=== PATIENT | female | born 1985 | race Caucasian/White ===

== ENCOUNTER 2019-05-11 08:07 | Inpatient (IN) ==
[2019-05-11] MEDS ORDERED: LACTATED RINGERS 1,000 ML IV SCH ×2 (08:45→11:30)
[2019-05-11] MEDS ORDERED: LACTATED RINGERS 1,000 ML IV ONE (08:46)
--- NOTE | 2019-05-11 09:05 | Emergency Department Note ---
Skin/Abscess/FB HPI - General Chief complaint: Skin/Abscess/Foreign Body Stated complaint: Left Knee Cellulitis, swelling and redness Time Seen by Provider: 05/11/19 09:02 Source: patient Mode of arrival: ambulatory Limitations: no limitations - History of Present Illness HPI Narrative: Patient returns for preop evaluation. Was seen last night and was told return in the morning for possible surgery. Dr. Last as are any seen the patient and she is going to the OR. She denies chest pain or shortness of breath. She's had no respiratory symptoms. Denies nausea vomiting or diarrhea. She has redness to the left knee which is worsening despite antibiotic treatment. MD complaint: abscess/boil - Related Data Previous Rx's Medication Instructions Recorded Naproxen [Naprosyn] 375 mg PO BID #14 tablet 05/25/15 Sulfamethoxazole/Trimethoprim 1 tab PO BID #20 tab 05/10/19 [Bactrim Ds] Allergies Allergy/AdvReac Type Severity Reaction Status Date / Time No Known Drug Allergies Allergy Verified 05/11/19 08:12 Review of Systems Review of Systems: Previously documented and there have been no changes. Past Medical History - Past Medical History Attestation: Yes: The following information was validated with the patient. Source: old records reviewed Medical history: Reports: no medical history, non-contributory Surgical history ED: Reports: cholecystectomy, other (2 D&Cs) - Social History smoking status: Current every day smoker Alcohol use: Reports: Rarely Drug use: Reports: none Physical Exam Limitations: no limitations General appearance: alert, in distress Head: atraumatic, normocephalic Eye: Present: normal appearance, PERRL, EOMI ENT: normal exam, mucous membranes moist, TM's normal bilaterally, normal external ear exam, other (moderate degree of hirsutism) Neck: Present: normal inspection, full ROM, trachea midline Chest: Present: normal inspection, symmetric chest wall rise Respiratory: Present: normal lung sounds bilaterally. Absent: respiratory distress, rales/crackles, wheezes Cardiovascular: Present: regular rate, normal rhythm, normal heart sounds Abdominal: Present: soft, normal bowel sounds. Absent: distention, tenderness, guarding Extremities: Present: pretibial edema, other (decreased range of motion of the left knee, consistent with cellulitis and prepatellar bursitis.). Absent: calf tenderness Back: Absent: CVA tenderness (R), CVA tenderness (L) Neurological: Present: alert, oriented X3, CN II-XII intact Psychiatric: Present: normal affect Skin: Present: warm, dry, erythema, other (cellulitis of the left knee area spreading all the way up to the mid thigh and mcfp down the leg.) Course - Reevaluation(s) Reevaluation #1: 12-lead EKG showing sinus tachycardia, no acute ST segment changes. Vital Signs Temperature 98.2 F 05/11/19 08:08 Pulse Rate 126 H 05/11/19 08:08 Respiratory Rate 18 05/11/19 08:08 Blood Pressure 120/56 05/11/19 08:08 Pulse Oximetry (%) 98 05/11/19 08:08 Temperature 98.2 F 05/11/19 08:08 Pulse Rate 123 H 05/11/19 09:00 Respiratory Rate 25 H 05/11/19 09:00 Blood Pressure 111/90 05/11/19 08:48 Pulse Oximetry (%) 100 05/11/19 09:00 Skin/Abscess/Foreign Body - [facility] Narrative Medical decision making narrative: Final impression is prepatellar bursitis. Patient going to the operating room at this time. IV fluids started. She was given antibiotics 2:00 in the morning. Disposition Pt seen by RELATIONSHIP MANAGER/PA only: No Clinical Impression: Cellulitis, Prepatellar bursitis of left knee Disposition: Xfer As Inpt ([facility]) Condition: Good Referrals: No,PCP [Primary Care Provider] -
[2019-05-11] MEDS: LACTATED RINGERS 1,000 ML IV ONE ×2 (09:20→10:00)
[2019-05-11 10:04] LABS: Basophils # (Auto) 0 K/mcL (0.0-0.3); Basophils % (Auto) 0.1 % (0.0-2.0); Eosinophils # (Auto) 0.3 K/mcL (0.0-0.7); Eosinophils % (Auto) 1.8 % (0.0-7.0); Granulocytes % (Auto) 78.3 % (38.0-78.0); Hematocrit 37.4 % (36.0-48.0); Hemoglobin 12.3 g/dL (12.0-15.0); Lymphocytes # (Auto) 1.8 K/mcL (1.5-4.8); Lymphocytes % (Auto) 11.1 % (15.5-49.0); Mean Cell Volume 88.1 fL (80.0-100.0); Mean Corpuscular HGB Conc 32.8 g/dL (31.0-36.0); Monocytes # (Auto) 1.4 K/mcL (0.1-0.9); Monocytes % (Auto) 8.7 % (1.0-12.0); Platelet Count 300 K/mcL (140-440); RBC 4.24 M/mcL (4.00-5.20); Red Cell Distribution Width 12.1 % (11.5-14.5); WBC 16.6 K/mcL (4.5-11.0)
[2019-05-11 10:25] LABS: ALT/SGPT 365 U/l (0-40); AST/SGOT 222 U/l (0-37); Albumin 3.4 gm/dL (3.2-5.2); Albumin/Globulin Ratio 1.2 (1.0-2.3); Alkaline Phosphatase 160 U/L (39-117); Bilirubin,Direct < 0.2 mg/dL (0.0-0.3); Bilirubin,Total 0.3 mg/dL (0.0-1.0); Blood Urea Nitrogen 9 mg/dl (6-20); Calcium 8.3 mg/dl (8.6-10.4); Carbon Dioxide 20 mmol/L (22-30); Chloride 102 mmol/L (96-108); Globulin 2.9 gm/dL (2.2-3.7); Glomerular Filtration Rate 118; Glucose 93 mg/dL (70-105); Lactate Dehydrogenase 202 U/L (94-250); Triglycerides 79 mg/dl (<150); Uric Acid 2.4 mg/dL (2.5-8.0)
[2019-05-11] MEDS ORDERED: ONDANSETRON 4 MG/2 ML VIAL IV ONE (11:05)
[2019-05-11] MEDS ORDERED: fentaNYL 100 MCG/2 ML VIAL IV ONE (11:05)
[2019-05-11] MEDS ORDERED: DEXAMETHASONE 10 MG/ML VIAL IV ONE (11:05)
[2019-05-11] MEDS ORDERED: PROPOFOL 200 MG/20 ML VIAL IV ONE (11:05)
[2019-05-11] MEDS ORDERED: GLYCOPYRROLATE 0.2 MG/ML VIAL IV ONE (11:05)
[2019-05-11] MEDS ORDERED: LIDOCAINE HCL/PF 100 MG/5 ML SYRINGE IV ONE (11:05)
[2019-05-11] MEDS ORDERED: KETAMINE 100 MG/ML ML IV ONE (11:05)
[2019-05-11] MEDS ORDERED: HYDROmorphone 2 MG/ML VIAL IV ONE (11:05)
[2019-05-11] MEDS ORDERED: MIDAZOLAM 5 MG/5 ML VIAL IV ONE (11:05)
[2019-05-11] MEDS ORDERED: HYDROmorphone 2 MG/ML VIAL IV PRN ×2 (11:23→11:57)
[2019-05-11] MEDS ORDERED: NALOXONE HCL 0.4 MG/ML VIAL IV PRN (11:23)
[2019-05-11] MEDS ORDERED: ONDANSETRON 4 MG/2 ML VIAL IV PRN ×2 (11:23→11:57)
[2019-05-11] MEDS ORDERED: KETOROLAC 30 MG/ML VIAL IV PRN (11:23)
[2019-05-11] MEDS ORDERED: fentaNYL 100 MCG/2 ML VIAL IV PRN (11:23)
[2019-05-11] MEDS ORDERED: LACTATED RINGERS 250 ML IV PRN (11:23)
[2019-05-11] MEDS ORDERED: IPRATROPIUM/ALBUTEROL 3 ML AMPUL.NEB NEB PRN (11:23)
[2019-05-11] MEDS ORDERED: METHOCARBAMOL 1,000 MG/10 ML VIAL IV PRN (11:23)
[2019-05-11] MEDS ORDERED: ACETAMINOPHEN 1,000 MG/100 ML BOTTLE IV ONE (11:23)
[2019-05-11] MEDS ORDERED: BENZOCAINE/MENTHOL 1 LOZENGE PO PRN (11:23)
[2019-05-11] MEDS ORDERED: FLUMAZENIL 0.1 MG/ML ML IV PRN (11:23)
[2019-05-11] MEDS ORDERED: oxyCODONE HCL 5 MG TABLET PO PRN (11:57)
[2019-05-11] MEDS ORDERED: ALBUTEROL SULFATE 2.5 MG/3 ML NEBULIZER NEB PRN (11:57)
[2019-05-11] MEDS ORDERED: VANCOMYCIN PER PHARMACY IV SCH (11:57)
[2019-05-11] MEDS ORDERED: HYDROCODONE/APAP 7.5/325MG TABLET PO PRN (11:58)
--- NOTE | 2019-05-11 13:36 | Internal Med History&Physical ---
Medical - H&P: [facility] Patient information: Note initiated : 05/11/19 at 1:33 pm Service Date, if different from initiated Date: [] Patient: Sherry Bonilla a 34 y/o F admitted on 05/11/19 for Left Knee Cellulitis, swelling and redness. Chief Complaint: [] History of present illness: Ms. Bonilla is a 34 year old F with no significant past medical history presents to the hospital today for evaluation of left knee pain. Patient was drowsy and was evaluated in her room postoperatively. Patient [place], she either cut or had a spider bite on the knee. Since then that has been increased erythema induration pain that has been progressively increasing. She was seen in the emergency ro om yesterday antibiotics were given and she was scheduled for surgery today. Dr. Last evaluated the patient this morning and scheduled the patient for surgery. Given the fact that patient had elevated white blood cell count was tachycardic possible sepsis medicine was advised to admit the patient for antibiotic management and management of sepsis postoperatively. On my evaluation patient is drowsy however alert oriented x3 she is able to answer some questions of family was at bedside. The patient notes that she has not taken any antibiotics besides what was provided to her yesterday. She has pain at the site of surgery, she had some fever and chills, but otherwise no other complaints. ROS unobtainable: due to mental status (Patient is quite drowsy but denies chest pain shortness of breath headache dizziness abdominal pain or any bowel bladder complaints) Medical - H&P: PMH Medical history: Denies any past medical history, Denies any chronic home medications Surgical history: Patient has a history of gallbladder surgery Family history: reviewed and not pertinent Pertinent family history: Grandfather had diabetes Social history: Active smoker Social use of marijuana Occasional alcohol report Denies any other recreational drug Medical - H&P: Meds Home Medications Medication Instructions Recorded Confirmed Type Naproxen [Naprosyn] 375 mg PO BID #14 tablet 05/25/15 Rx Sulfamethoxazole/Trimethoprim 1 tab PO BID #20 tab 05/10/19 Rx [Bactrim Ds] Allergies Allergy/AdvReac Type Severity Reaction Status Date / Time No Known Drug Allergies Allergy Verified 05/11/19 08:12 Medical - H&P: Exam - Constitutional Vitals: Temp Pulse Resp BP Pulse Ox 98.6 F 110 H 16 96/62 95 05/11/19 13:00 05/11/19 12:56 05/11/19 13:00 05/11/19 13:00 05/11/19 13:00 Exam: GENERAL: The patient is a well-developed, well-nourished in no apparent distress. Is drowsy and oriented x3. VITAL SIGNS: Reviewed and as noted elsewhere. HEENT: Head is normocephalic and atraumatic. Extraocular muscles are intact. Pupils are equal, round, and reactive to light. Nares appeared normal. Mouth appears any without lesions. Mucous membranes are moist. NECK: Normal to inspection, Supple, No lymphadenopathy or thyromegaly. LUNGS: Air entry equal on both sides, no wheezing, crackles or rhonchi noted. No accessory muscles of respiration HEART: Regular rate and rhythm normal, S1 and S2 heard, no Gallop, S3 or Rub Noted, No Gross murmur heard. ABDOMEN: Soft, nontender, and nondistended. Positive bowel sounds. No hepatosplenomegaly was noted. EXTREMITIES: No cyanosis, clubbing, rash, lesions or edema. Left knee in dressing, drain in place NEUROLOGIC: Cranial nerves II through XII are grossly intact. Motor and Sensory System Grossly Intact PSYCHIATRIC: Normal affect, Normal Mood. Appropriate Behavior. SKIN: No ulceration or wounds noted, No jaundice, No rash noted. Medical - H&P: Reslt - Labs CBC & Chem 7: 05/11/19 09:26 05/11/19 09:26 Labs: Short CBC 05/11/19 Range/Units 09:26 WBC 16.6 H (4.5-11.0) K/mcL Hgb 12.3 (12.0-15.0) g/dL Hct 37.4 (36.0-48.0) % Plt Count 300 (140-440) K/mcL BMP 05/11/19 09:26 Sodium 133 Potassium 3.9 Chloride 102 Carbon Dioxide 20 L BUN 9 Creatinine 0.6 Glucose 93 Calcium 8.3 L Liver Function 05/11/19 Range/Units 09:26 Total Bilirubin 0.3 (0.0-1.0) mg/dL Direct Bilirubin < 0.2 (0.0-0.3) mg/dL GGT 102 H (5-36) U/L AST 222 H (0-37) U/l ALT 365 H (0-40) U/l Alkaline Phosphatase 160 H (39-117) U/L Albumin 3.4 (3.2-5.2) gm/dL Medical - H&P: A/P - Narrative A/P Narrative: A/P Sepsis Left knee bursitis, Cellulitis Tobacco abuse Marijua use Abnormal lft Plan Admit to med surg ANGIE brunson for now check a1c, hiv get liver usg, check hepatitis panel, apap level, DVT hep sq Regular diet
[2019-05-11] MEDS: KETOROLAC 30 MG/ML VIAL IV SCH ×3 (13:37→23:14)
[2019-05-11] MEDS ORDERED: VANCOMYCIN 1,500 MG in 0.9 % SODIUM CHLORIDE 500 ML IV ONE (14:00)
[2019-05-11] MEDS: 0.9 % SODIUM CHLORIDE 10 ML SYRINGE IV SCH ×3 (14:30→20:42)
[2019-05-11] MEDS: oxyCODONE HCL 5 MG TABLET PO PRN ×2 (14:58→23:14)
[2019-05-11] MEDS: cefTRIAXone 2 GM in DEXTROSE 5% IN WATER 50 ML IV SCH (15:00)
[2019-05-11] MEDS: ACETAMINOPHEN 500 MG TABLET PO SCH ×2 (15:00→20:34)
[2019-05-11 15:43] LABS: Hepatitis B Surface Antibody POSITIVE (NEGATIVE); Hepatitis C Virus Antibody NON REACTIVE (NEGATIVE)
[2019-05-11 15:44] LABS: Hepatitis B Surface Antigen NEGATIVE (NEGATIVE)
[2019-05-11] MEDS ORDERED: ALPRAZolam 0.5 MG TABLET PO PRN (18:56)
[2019-05-11] MEDS ORDERED: ALPRAZolam 0.5 MG TABLET ONE (19:17)
[2019-05-11] MEDS ORDERED: NICOTINE 21 MG PATCH ONE (19:18)
[2019-05-11] MEDS: HEPARIN 5,000 UNIT/ML VIAL SQ SCH (20:35)
[2019-05-11] MEDS: NICOTINE 21 MG PATCH TOPICAL SCH (20:41)
[2019-05-11] MEDS ORDERED: VANCOMYCIN 500 MG in 0.9 % SODIUM CHLORIDE 100 ML IV ONE (21:00)
[2019-05-11] MEDS: 0.9 % SODIUM CHLORIDE 1,000 ML IV SCH (22:18)
[2019-05-12 05:58] LABS: Hemoglobin A1C 5.2 % HGB (4.0-6.0)
[2019-05-12] MEDS: KETOROLAC 30 MG/ML VIAL IV SCH ×3 (05:58→17:58)
[2019-05-12] MEDS: 0.9 % SODIUM CHLORIDE 1,000 ML IV SCH (05:58)
[2019-05-12] MEDS: 0.9 % SODIUM CHLORIDE 10 ML SYRINGE IV SCH ×5 (06:03→20:46)
[2019-05-12] MEDS: ACETAMINOPHEN 500 MG TABLET PO SCH ×3 (08:04→20:45)
[2019-05-12] MEDS: cefTRIAXone 2 GM in DEXTROSE 5% IN WATER 50 ML IV SCH (08:04)
[2019-05-12 09:36] LABS: Basophils # (Auto) 0.1 K/mcL (0.0-0.3); Basophils % (Auto) 0.4 % (0.0-2.0); Eosinophils # (Auto) 0 K/mcL (0.0-0.7); Eosinophils % (Auto) 0.3 % (0.0-7.0); Granulocytes % (Auto) 78.3 % (38.0-78.0); Hematocrit 32.3 % (36.0-48.0); Hemoglobin 10.6 g/dL (12.0-15.0); Lymphocytes # (Auto) 1.9 K/mcL (1.5-4.8); Lymphocytes % (Auto) 14.3 % (15.5-49.0); Mean Platelet Volume 7.7 fL (7.4-10.4); Monocytes # (Auto) 0.9 K/mcL (0.1-0.9); Monocytes % (Auto) 6.7 % (1.0-12.0); Platelet Count 312 K/mcL (140-440); RBC 3.59 M/mcL (4.00-5.20); Red Cell Distribution Width 12.4 % (11.5-14.5); WBC 13.5 K/mcL (4.5-11.0)
--- NOTE | 2019-05-12 09:56 | Orthopedic Progress Note ---
Subjective Patient information: Note initiated : 05/12/19 at 9:51 am Service Date, if different from initiated Date: [] Patient: Sherry Bonilla 34 y/o F admitted on 05/11/19 for Left Knee Cellulitis, swelling and redness. Chief Complaint: [] Interval history: Patient is POD 1 and reports that she is feeling well but her knee is mildly painful. She has been resting in bed. She denies any fever, chills, nausea, vom iting, or any other acute symptoms. Objective Vital signs: Vital Signs Temp Pulse Pulse Resp BP BP Pulse Ox 05/12/19 06:44 99 F 79 16 83/56 97 05/12/19 03:45 98.2 F 97 H 16 100/59 98 05/11/19 23:40 97.9 F 84 16 97/62 94 05/11/19 19:00 97.7 F 89 16 99/62 96 05/11/19 17:15 102 H 94/60 05/11/19 16:33 96 H 89/62 05/11/19 16:03 93 H 86/56 93 05/11/19 16:00 86/56 05/11/19 15:03 81 104/66 99 05/11/19 14:33 88 95/61 99 05/11/19 13:19 116 H 97/60 91 05/11/19 13:00 98.6 F 16 96/62 95 05/11/19 12:56 97.8 F 110 H 13 116/46 99 05/11/19 12:40 101 H 10 L 113/54 100 05/11/19 12:35 102 H 11 L 115/54 100 05/11/19 12:30 102 H 15 109/51 100 05/11/19 12:25 103 H 13 102/46 100 05/11/19 12:20 103 H 12 102/46 100 05/11/19 12:15 106 H 9 L 104/42 98 05/11/19 12:10 99.3 F H 105 H 10 L 109/40 97 05/11/19 09:56 98.2 F 123 H 19 111/90 100 Intake and Output 05/11/19 05/12/19 05/12/19 21:59 05:59 13:59 Intake Total 1550 1558 Output Total 1999 315 700 Balance -450 943 -700 Intake: IV 1150 958 Sodium Chloride 0.9% 1,000 ml @ 958 125 mls/hr IV .Q8H [facility] Rx#: [id number] Lactated Ringers 1,000 ml @ 20 1000 mls/hr IV .Q24H RAD[facility] Rx#: [id number] Rocephin 2 gm In Dextrose 5% in 50 Water 50 ml @ 100 mls/hr IV Q24H [facility] Rx#:[id number] Oral 400 600 Output: Drainage 15 Left Knee ESPERANZA Drain 15 Void Amount 1999 600 700 Other: Meal Dinner Percent of Meal Consumed 90% Feeding Ability Independent Urine Appearance Clear Clear Clear Urine Color Bright Yellow Bright Yellow Light Camilla Urine Odor Normal Weight 164 lb Intake & Output: Intake & Output 05/11/19 05/12/19 05/12/19 21:59 05:59 13:59 Intake Total 1550 1558 Output Total 1999 615 700 Balance -450 943 -700 Weight 164 lb Intake: IV 1150 958 Sodium Chloride 0.9% 1,000 ml @ 958 125 mls/hr IV .Q8H [facility] Rx#: [id number] Lactated Ringers 1,000 ml @ 20 1000 mls/hr IV .Q24H [facility] Rx#: [id number] Rocephin 2 gm In Dextrose 5% in 50 Water 50 ml @ 100 mls/hr IV Q24H [facility] Rx#:[id number] Oral 400 600 Output: Drainage 15 Left Knee ESPERANZA Drain 15 Void Amount 1999 600 700 Other: Meal Dinner Percent of Meal Consumed 90% Feeding Ability Independent Urine Appearance Clear Clear Clear Urine Color Bright Yellow Bright Yellow Light Camilla Urine Odor Normal Incision clean and dry: Yes Dressing: Yes clean Weight bearing status: as tolerated Neurological exam IM: Yes neurovascular intact Extremities exam IM: Yes Foot pink and warm - Labs CBC & BMP: 05/12/19 08:54 05/11/19 09:26 Labs: 05/12/19 05/11/19 08:54 09:26 Hgb 10.6 L 12.3 Hct 32.3 L 37.4 Assessment and Plan - Narrative A/P Narrative: POD 1 I&D left knee infectious prepatellar bursitis 1. Drain removed today at visit 2. Dressings to remain in place until POD 3 and then can be redressed with gauze 3. May be WBAT and knee ROM as tolerated 4. IV antibiotics and discharge per hospitalists. 5. Follow up with [facility] around 2 week postop rubens
[2019-05-12 09:57] LABS: ALT/SGPT 177 U/l (0-40); AST/SGOT 46 U/l (0-37); Albumin 2.7 gm/dL (3.2-5.2); Alkaline Phosphatase 110 U/L (39-117); Bilirubin,Direct < 0.2 mg/dL (0.0-0.3); Bilirubin,Total 0.2 mg/dL (0.0-1.0); Blood Urea Nitrogen 9 mg/dl (6-20); Calcium 8.1 mg/dl (8.6-10.4); Carbon Dioxide 23 mmol/L (22-30); Chloride 108 mmol/L (96-108); Globulin 2.6 gm/dL (2.2-3.7); Glomerular Filtration Rate 118; Glucose 119 mg/dL (70-105); Lactate Dehydrogenase 190 U/L (94-250); Phosphorous 2.7 mg/dL (2.7-4.5); Triglycerides 84 mg/dl (<150); Uric Acid 2.3 mg/dL (2.5-8.0)
[2019-05-12] MEDS: HEPARIN 5,000 UNIT/ML VIAL SQ SCH ×2 (10:17→20:45)
[2019-05-12] MEDS: VANCOMYCIN 1,500 MG in 0.9 % SODIUM CHLORIDE 500 ML IV SCH ×2 (10:17→20:46)
--- NOTE | 2019-05-12 11:30 | Internal Med Progress Note ---
Medical - PN: Subj Patient information: Note initiated : 05/12/19 at 11:26 am Service Date, if different from initiated Date: [] Patient: Sherry Bonilla a 34 y/o F admitted on 05/11/19 for Left Knee Cellulitis, swelling and redness. Chief Complaint: [] Interval history: Ms. Bonilla is a 34 year old F with no significant past medical history presents to the hospital today for evaluation of left knee pain. Patient was drowsy and was evaluated in her room postoperatively. Patient [place] 5 [place], she either cut or had a spider bite on the knee. Since then that has been increased erythema induration pain that has been progressively increasing. She was seen in the emergency room yesterday antibiotics were given and she was scheduled for surgery today. Dr. Last evaluated the patient this morning and scheduled the patient for surgery. Given the fact that patient had elevated white blood cell count was tachycardic possible sepsis medicine was advised to admit the patient for a ntibiotic management and management of sepsis postoperatively. On my evaluation patient is drowsy however alert oriented x3 she is able to answer some questions of family was at bedside. The patient notes that she has not taken any antibiotics besides what was provided to her yesterday. She has pain at the site of surgery, she had some fever and chills, but otherwise no other complaints. 05/12 Patient seen and examined, no acute overnight events. Wound is still covered with dressing, however there is no extension of cellulitis into the thigh region. I reviewed the case with Ortho to have remove the drain. I noted that the patient's cellulitis is much better than yesterday. Patient has no new complaints or concerns Wound cultures growing gram-positive as well as gram-negative bacteria Pertinent ROS: Denies headache, dizziness Denies chest pain, palpitations Denies cough or shortness of breath Denies abdominal pain, nausea or vomiting. - Constitutional Vitals: Vital Signs Temp Pulse Resp BP Pulse Ox 99 F 79 16 83/56 97 05/12/19 06:44 05/12/19 06:44 05/12/19 06:44 05/12/19 06:44 05/12/19 06:44 Period Temp Pulse Resp BP Sys/Mcmillan Pulse Ox Last 24 Hr 97.7 F-99.3 F 79-116 9-16 83-116/40-66 91-100 Intake and Output 05/11/19 05/12/19 05/12/19 21:59 05:59 13:59 Intake Total 1550 1558 50 Output Total 1999 615 700 Balance -450 943 -650 Weight 164 lb Intake & Output: Intake & Output 05/11/19 05/12/19 05/12/19 21:59 05:59 13:59 Intake Total 1550 1558 50 Output Total 1999 615 700 Balance -450 943 -650 Weight 164 lb Intake: IV 1150 958 50 Sodium Chloride 0.9% 1,000 ml @ 958 125 mls/hr IV .Q8H [facility] Rx#: [id number] Lactated Ringers 1,000 ml @ 20 1000 mls/hr IV .Q24H [facility] Rx#: [id number] Rocephin 2 gm In Dextrose 5% in 50 50 Water 50 ml @ 100 mls/hr IV Q24H [facility] Rx#:[id number] Oral 400 600 Output: Drainage 15 Left Knee ESPERANZA Drain 15 Void Amount 1999 600 700 Other: Meal Dinner Percent of Meal Consumed 90% Feeding Ability Independent Urine Appearance Clear Clear Clear Urine Color Bright Yellow Bright Yellow Light Camilla Urine Odor Normal Exam: Constitutional; Afebrile, cooperative, alert, not in distress. Eyes- No icterus, , No periorbital swelling Ears- Ext ear normal, hearing normal to conversation. Neck- Midline trachea, supple Respiratory system: Air Entry equal on both sides, No crackles or wheezing, no rhonchi. CVS- Rate rhythm regular, S1,S2 heard, no gallop, no rub. Abdomen- Soft nontender abdomen, no organomegaly, no tenderness, no guarding or rigidity, TANGLED YARN SPOOL STRAIGHTENER- AOOx3, moving all extremities, no gross focal deficit noted. Medical - PN: Obj Da - Labs CBC & Chem 7: 05/12/19 08:54 05/12/19 08:54 Labs: Abnormal Lab Results 05/12/19 05/12/19 05/11/19 08:54 08:54 14:36 WBC 13.5 H RBC 3.59 L Hgb 10.6 L Hct 32.3 L Gran % 78.3 H Lymph % (Auto) 14.3 L Gran # 10.6 H Chester # (Auto) Carbon Dioxide Glucose 119 H Uric Acid 2.3 L Calcium 8.1 L GGT 64 H AST 46 H ALT 177 H Alkaline Phosphatase Total Protein 5.3 L Albumin 2.7 L Hep Bs Antibody Positive A 05/11/19 05/11/19 09:26 09:26 WBC 16.6 H RBC Hgb Hct Gran % 78.3 H Lymph % (Auto) 11.1 L Gran # 13.0 H Chester # (Auto) 1.4 H Carbon Dioxide 20 L Glucose Uric Acid 2.4 L Calcium 8.3 L GGT 102 H AST 222 H ALT 365 H Alkaline Phosphatase 160 H Total Protein Albumin Hep Bs Antibody Meds: Medications Acetaminophen (Tylenol) 1,000 mg PO TID [facility] Last Admin: 05/12/19 08:04 Dose: 1,000 mg Documented by: Albuterol Sulfate (Ventolin) 2.5 mg NEB Q2HP PRN PRN Reason: Shortness Of Breath Alprazolam (Xanax) 0.5 mg PO TIDP PRN PRN Reason: Anxiety Heparin Sodium (Porcine) (Heparin) 5,000 unit SQ Q12 [facility] Last Admin: 05/12/19 10:17 Dose: 5,000 unit Documented by: Heparin Sodium (Porcine) (Heparin Flush) 2 ml IV Q12 [facility] Last Admin: 05/11/19 20:34 Dose: 2 ml Documented by: Hydromorphone HCl (Dilaudid) 0.5 mg IV Q2HP PRN PRN Reason: pain\ Last Admin: 05/11/19 13:27 Dose: 0.5 mg Documented by: Ceftriaxone Sodium 2 gm/ (Dextrose) 50 mls @ 100 mls/hr IV Q24H [facility] Last Infusion: 05/12/19 08:35 Dose: Infused Documented by: Vancomycin HCl 1,500 mg/ (Sodium Chloride) 500 mls @ 333.3 mls/hr IV Q12H [facility] Last Admin: 05/12/19 10:17 Dose: 333.3 mls/hr Documented by: Sodium Chloride (Sodium Chloride 0.9%) 1,000 mls @ 125 mls/hr IV .Q8H [facility] Stop: 05/12/19 13:44 Last Admin: 05/12/19 05:58 Dose: 125 mls/hr Documented by: Ketorolac Tromethamine (Toradol) 15 mg IV Q6 [facility] Stop: 05/12/19 18:01 Last Admin: 05/12/19 05:58 Dose: 15 mg Documented by: Nicotine (Nicoderm) 21 mg TOPICAL DAILY@1000 [facility] Last Admin: 05/11/19 20:41 Dose: Not Given Documented by: Ondansetron HCl (Zofran) 4 mg IV Q6HP PRN PRN Reason: Nausea And Vomiting Oxycodone HCl (Roxicodone) 5 - 10 mg PO Q4HP PRN PRN Reason: pain not responding/apap Last Admin: 05/11/19 23:14 Dose: 5 mg Documented by: Sodium Chloride (Saline Flush) 10 ml IV Q8 [facility] Last Admin: 05/12/19 06:03 Dose: Not Given Documented by: Sodium Chloride (Saline Flush) 10 ml IV Q12 [facility] Last Admin: 05/12/19 10:17 Dose: 10 ml Documented by: Vancomycin HCl (Vancomycin Per Pharmacy) 1 order IV UD [facility]; Protocol Medical - PN: A/P - Time Spent With Patient Total time spent is greater than 50% in coordination of care (as documented) at patient's floor/unit and/or counseling patient: - Narrative A/P Narrative: A/P Sepsis Left knee bursitis, Cellulitis Tobacco abuse Marijua use Abnormal lft Plan Admit to med surg await microbiology reports IV vanco and rocephin for now HIV negative A1c is normal Liver function tests are trending down get liver usg, hepatitis panel and APAP level is negative patient appears to have immunization to hepatitis B Liver ultrasound is elevated, patient's elevated liver function test likely secondary to sepsis DVT hep sq Regular diet Medical - PN: Qual - VTE Deep Vein Thrombosis/Pulmonary Embolism Present on Admission: No
[2019-05-12] MEDS: NICOTINE 21 MG PATCH TOPICAL SCH (15:13)
--- NOTE | 2019-05-12 15:35 | Ultrasound Report ---
CLINICAL INFORMATION: elevated lft COMPARISON: None. FINDINGS: Liver is diffusely hyperechoic compatible with fatty change. Gallbladder is surgically absent. Common bile is normal at 6 mm. Pancreas is unremarkable. No free fluid IMPRESSION: Minimally hyperechoic liver suggesting fatty change. Gallbladder surgically absent. Common bile duct and pancreas are normal. Interpreted and Authenticated by: Raúl Rodgers 05/12/19
[2019-05-12] MEDS: oxyCODONE HCL 5 MG TABLET PO PRN (19:11)
[2019-05-13] MEDS: oxyCODONE HCL 5 MG TABLET PO PRN ×3 (03:23→13:10)
[2019-05-13] MEDS: 0.9 % SODIUM CHLORIDE 10 ML SYRINGE IV SCH ×3 (05:49→13:53)
[2019-05-13 06:31] LABS: Basophils # (Auto) 0.1 K/mcL (0.0-0.3); Basophils % (Auto) 0.9 % (0.0-2.0); Eosinophils # (Auto) 0.2 K/mcL (0.0-0.7); Eosinophils % (Auto) 2.3 % (0.0-7.0); Granulocytes % (Auto) 65.6 % (38.0-78.0); Hematocrit 31.5 % (36.0-48.0); Hemoglobin 10.6 g/dL (12.0-15.0); Lymphocytes # (Auto) 1.8 K/mcL (1.5-4.8); Lymphocytes % (Auto) 21.3 % (15.5-49.0); Mean Cell Volume 87.7 fL (80.0-100.0); Mean Corpuscular HGB Conc 33.8 g/dL (31.0-36.0); Mean Platelet Volume 7.8 fL (7.4-10.4); Monocytes # (Auto) 0.8 K/mcL (0.1-0.9); Monocytes % (Auto) 9.9 % (1.0-12.0); Platelet Count 306 K/mcL (140-440); RBC 3.59 M/mcL (4.00-5.20); Red Cell Distribution Width 11.4 % (11.5-14.5); WBC 8.5 K/mcL (4.5-11.0)
[2019-05-13 06:33] LABS: ALT/SGPT 162 U/l (0-40); AST/SGOT 75 U/l (0-37); Albumin 2.6 gm/dL (3.2-5.2); Alkaline Phosphatase 104 U/L (39-117); Bilirubin,Direct < 0.2 mg/dL (0.0-0.3); Bilirubin,Total < 0.2 mg/dL (0.0-1.0); Blood Urea Nitrogen 9 mg/dl (6-20); Calcium 7.8 mg/dl (8.6-10.4); Carbon Dioxide 22 mmol/L (22-30); Chloride 108 mmol/L (96-108); Globulin 2.6 gm/dL (2.2-3.7); Glomerular Filtration Rate 125; Glucose 85 mg/dL (70-105); Lactate Dehydrogenase 176 U/L (94-250); Triglycerides 107 mg/dl (<150); Uric Acid 2.5 mg/dL (2.5-8.0)
--- NOTE | 2019-05-13 07:20 | Orthopedic Progress Note ---
Subjective Patient information: Note initiated : 05/13/19 at 7:17 am Service Date, if different from initiated Date: [] Patient: Sherry Bonilla 34 y/o F admitted on 05/11/19 for Left Knee Cellulitis, swelling and redness. Chief Complaint: [S/P I&D of left pre-patellar bursa] Patient is doing well and her pain is overall improving. She denies any fever, chills, or significant lower extremity/calf tenderness. Objective Vital signs: Vital Signs Temp Pulse Resp BP BP Pulse Ox 05/13/19 06:45 98.7 F 104 H 16 109/64 98 05/13/19 03:00 98.2 F 96 H 16 107/65 97 05/12/19 23:43 99.7 F H 106 H 16 103/56 97 05/12/19 20:00 97.9 F 96 H 16 107/63 99 05/12/19 15:11 98.9 F 91 H 16 100/59 98 05/12/19 11:51 98.6 F 100 H 16 99/61 98 Intake and Output 05/12/19 05/13/19 05/13/19 21:59 05:59 13:59 Intake Total 420 150 Output Total 950 Balance -530 150 Intake: Oral 420 150 Output: Void Amount 950 Other: Urine Appearance Clear Urine Color Dark Camilla Urine Odor Normal # Voids 1 2 Weight 179 lb Intake & Output: Intake & Output 05/12/19 05/13/19 05/13/19 21:59 05:59 13:59 Intake Total 420 150 Output Total 950 Balance -530 150 Weight 179 lb Intake: Oral 420 150 Output: Void Amount 950 Other: Urine Appearance Clear Urine Color Dark Camilla Urine Odor Normal # Voids 1 2 Incision: Yes healing, Yes clean and dry Incision clean and dry: Yes Dressing: Yes clean, Yes dry, Yes intact Weight bearing status: full Neurological exam IM: Yes alert, Yes motor sensory intact, Yes neurovascular intact Extremities exam IM: Yes calf tenderness (Negative bilaterally), Yes tenderness (Mild diffuse left knee tenderness to palpation), Yes West's sign (negative), Yes Foot pink and warm, Yes neurovascular intact - Labs CBC & BMP: 05/13/19 04:36 05/13/19 04:36 Labs: 07/22/19 07/21/19 07/20/19 04:36 08:54 09:26 Hgb 10.6 L 10.6 L 12.3 Hct 31.5 L 32.3 L 37.4 Assessment and Plan (1) Cellulitis of left knee Continue broad-spectrum abx until culture results are in, then recommendations p er Dr. Garcia. She may ambulate as tolerated starting with her walker. She may shower and replace with dry dressing/bandaid after showers when discharged. Status: Acute (2) Prepatellar bursitis of left knee Status: Acute
[2019-05-13] MEDS: cefTRIAXone 2 GM in DEXTROSE 5% IN WATER 50 ML IV SCH (08:07)
[2019-05-13] MEDS: HEPARIN 5,000 UNIT/ML VIAL SQ SCH (08:08)
[2019-05-13] MEDS: VANCOMYCIN 1,500 MG in 0.9 % SODIUM CHLORIDE 500 ML IV SCH (10:34)
--- NOTE | 2019-05-13 11:22 | Discharge Summary ---
Medical - DS: Prov Patient information: Note initiated : 05/13/19 at 11:19 am Service Date, if different from initiated Date: [] Patient: Sherry Bonilla a 34 y/o F admitted on 05/11/19 for Left Knee Cellulitis, swelling and redness. Chief Complaint: [] Date of admission: 05/11/19 13:00 Discharge date: 05/13/19 Primary care physician: PCP No Consults: 05/11/19 Consult to Physician [CONS] Stat Comment: Consulting Provider: Nabil Last Reason For Exam: Physician to Consult Consult to Physician [CONS] Stat Comment: Consulting Provider: Ann Ramirez Reason For Exam: Physician to Consult 05/11/19 12:58 Consult to Physician [CONS] Routine Comment: Consulting Provider: Nabil Last Reason For Exam: Physician to Consult Discharging clinician: Ann Ramirez Medical - DS: Meds - Discharge Medications Prescriptions: Amoxicillin/Potassium Clav [Augmentin] 875 mg PO Q12H #10 tab Active and Home Medications: Home Medications Naproxen [Naprosyn] 375 mg PO BID #14 tablet 05/25/15 [Rx Confirmed 05/11/19 Last Taken Unknown] Sulfamethoxazole/Trimethoprim [Bactrim Ds] 1 tab PO BID #20 tab 05/10/19 [Rx Confirmed 05/11/19 Last Taken 05/10/19 17:00] Medical - DS: Hosp Hospital course: Ms. Bonilla is a 34 year old F with no significant past medical history presents to the hospital today for evaluation of left knee pain. Patient was drowsy and was evaluated in her room postoperatively. [place], she either cut or had a spider bite on the knee. Since then that has been increased erythema induration pain that has been progressively increasing. She was seen in the emergency room yesterday antibiotics were given and she was scheduled for surgery today. Dr. Last evaluated the patient this morning and scheduled the patient for surgery. Given the fact that patient had elevated white blood cell count was tachycardic possible sepsis medicine was advised to admit the patient for antibiotic management and management of sepsis postoperatively. On my evaluation patient is drowsy however alert oriented x3 she is able to answer some questions of family was at bedside. The patient notes that she has not taken any antibiotics besides what was provided to her yesterday. She has pain at the site of surgery, she had some fever and chills, but otherwise no other complaints. 05/12 Patient seen and examined, no acute overnight events. Wound is still covered with dressing, however there is no extension of cellulitis into the thigh region. I reviewed the case with Ortho to have remove the drain. I noted that the patient's cellulitis is much better than yesterday. Patient has no new complaints or concerns Wound cultures growing gram-positive as well as gram-negative bacteria 05/13 Patient seen examined, no acute issue, doing well knee culture is growing strep and gram negaitve bacillus, wound healing well, stable for discharge will discharge with oral augmentin 875bid, given there is not staph/mrsa follow up with ortho as scheduled. Discharge diagnosis: knee bursitis, infectious - Time Spent with Patient Total time spent providing and/or coordinating discharge services: Greater than 30 minutes Medical - DS: Exam - Constitutional Vitals: Vital Signs Temp Pulse Resp BP BP Pulse Ox 05/13/19 06:45 98.7 F 104 H 16 109/64 98 05/13/19 03:00 98.2 F 96 H 16 107/65 97 05/12/19 23:43 99.7 F H 106 H 16 103/56 97 05/12/19 20:00 97.9 F 96 H 16 107/63 99 05/12/19 15:11 98.9 F 91 H 16 100/59 98 05/12/19 11:51 98.6 F 100 H 16 99/61 98 Intake and Output 05/12/19 05/13/19 05/13/19 21:59 05:59 13:59 Intake Total 420 650 50 Output Total 950 1000 Balance -530 650 -950 Intake: IV 500 50 Vancomycin 1,500 mg In Sodium 500 Chloride 0.9% 500 ml @ 333.3 mls/hr IV Q12H RADHA Rx#: [id number] Rocephin 2 gm In Dextrose 5% in 50 Water 50 ml @ 100 mls/hr IV Q24H RADHA Rx#:[id number] Oral 420 150 Output: Void Amount 950 1000 Other: Urine Appearance Clear Clear Urine Color Dark Camilla Dark Yellow Urine Odor Normal # Voids 1 2 Weight 179 lb Additional comments: Constitutional; Afebrile, cooperative, alert, not in distress. Respiratory system: Air Entry equal on both sides, No crackles or wheezing, no rhonchi. CVS- Rate rhythm regular, S1,S2 heard, no gallop, no rub. Abdomen- Soft nontender abdomen, no organomegaly, no tenderness, no guarding or rigidity, [employer]- AOOx3, moving all extremities, no gross focal deficit noted. Left knee in dressing, managed by ortho Medical - DS: Data Labs on day of discharge: Labs from last 24 hours 05/13/19 05/13/19 05/13/19 08:25 04:36 04:36 WBC 8.5 RBC 3.59 L Hgb 10.6 L Hct 31.5 L MCV 87.7 MCH 29.6 MCHC 33.8 RDW 11.4 L Plt Count 306 MPV 7.8 Gran % 65.6 Lymph % (Auto) 21.3 [place] % (Auto) 9.9 Eos % (Auto) 2.3 Baso % (Auto) 0.9 Gran # 5.6 Lymph # (Auto) 1.8 [place] # (Auto) 0.8 Eos # (Auto) 0.2 Baso # (Auto) 0.1 Sodium 139 Potassium 3.7 Chloride 108 Carbon Dioxide 22 Anion Gap 9.0 BUN 9 Creatinine 0.5 L GFR Calculation 125 Glucose 85 Uric Acid 2.5 Calcium 7.8 L Phosphorus 3.0 Magnesium 1.7 Total Bilirubin < 0.2 Direct Bilirubin < 0.2 GGT 63 H AST 75 H ALT 162 H Alkaline Phosphatase 104 Lactate Dehydrogenase 176 Total Protein 5.2 L Albumin 2.6 L Globulin 2.6 Albumin/Globulin Ratio 1.0 Triglycerides 107 Vancomycin Trough 9.4 Preliminary micro results at discharge 05/11/19 13:07 Wound Culture - Preliminary Knee - Left Beta strep 05/11/19 13:07 Wound Culture - Preliminary Knee - Left 05/11/19 12:00 Blood Culture - Preliminary Blood 05/11/19 11:45 Blood Culture - Preliminary Blood 05/11/19 13:07 Anaerobic Culture - Preliminary Knee - Left 05/11/19 13:07 Anaerobic Culture - Preliminary Knee - Left Medical - DS: A/P - Patient/Caregiver Discharge Instructions Activity: increase activity as tolerated Diet: Regular Diet Additional Instructions: Take Augmentin [amoxicillin clavunic acidd] 875 mg twice a day for 5 more days Follow-up with orthopedics as scheduled Wound care as recommended by orthopedics Go to the emergency room if worsening redness pain fever or any other acute concern - Follow up Plan Follow up with: No,PCP [Primary Care Provider] - (Follow up with [facility] in 2 weeks. Needs follow up appointment. ) Disposition: Home, Self-Care Prognosis: Good Rehab Potential: Good I certify that the patient requires SNF services: No Overall status at discharge: patient is progressing back to baseline Medical - DS: Qual - VTE Deep Vein Thrombosis/Pulmonary Embolism Present on Admission: No
[2019-05-13] MEDS: NICOTINE 21 MG PATCH TOPICAL SCH (11:42)
--- NOTE | 2019-05-24 15:11 | Operative Note ---
DATE OF OPERATION: 05/11/2019 PREOPERATIVE DIAGNOSIS: Cellulitis and septic prepatellar bursa. POSTOPERATIVE DIAGNOSIS: Cellulitis and septic prepatellar bursa. OPERATION PROPOSED: Irrigation and debridement of septic prepatellar bursa. OPERATION PERFORMED: Same. OPERATING SURGEON: Urban Last MD CROP DUSTER: INDICATIONS: This is a lady who has developed prominent swelling, erythema, pain and fluctuance beneath the prepatellar region of the knee consistent with a septic bursitis. She has been seen in the ER, had been placed on IV antibiotics, but her symptoms continue to worsen. We elected to proceed with irrigation and debridement of the septic prepatellar bursa. OPERATION IN DETAIL: Informed consent was obtained. She was taken to the operating room where she was provided with appropriate anesthetic and antibiotics were held until cultures could be obtained. This was done arthroscopically. We placed a portal for the scope and a portal for ingress and egress of fluid and a working portal. There was a marked amount of purulent material that came from these initially placed portals. This was cultured. Extensive irrigation and debridement was performed. An oscillating shaver was used to debride the bursa. After thorough irrigation and debridement, a deep drain was placed. She leaves the operating room in excellent condition. No complications of the procedure. Estimated blood loss nil. GDD:eufemia Job ID: [id number] Doc ID: [id number] Nabil Last MD
--- NOTE | 2019-05-24 15:13 | History and Physical Report ---
DATE OF ADMISSION: 05/11/2019 IDENTIFICATION: This is a 34-year-old lady. CHIEF COMPLAINT: Cellulitis and septic prepatellar bursa. HISTORY OF PRESENT ILLNESS: Ms Bonilla did not have any real specific inciting event or injury. She has had some chronic patch of dry skin over the lateral aspect of the knee ever since she was a child, but developed this progressive redness, swelling, pain 4 to 5 days ago. She presented to the emergency room at [facility] where she was placed on antibiotics. She has been taking oral Bactrim. She has received at least 1 or 2 doses of IV Vancomycin. Unfortunately, the erythema has only seemed to have progressed and has not substantially improved. She presents now with increased pain, swelling and broadening of this area of erythema/cellulitis. PAST MEDICAL HISTORY: Significant for mild asthma. She does use an occasional inhaler. PAST SURGICAL HISTORY: Noncontributory to this problem. MEDICATIONS: Typically none. PHYSICAL EXAMINATION: GENERAL: She is awake and alert. She is resting comfortably. HEAD: Normocephalic, atraumatic. EYES: PERRLA. Conjunctivae clear. ENT: Within normal limits. NECK: Supple without pain on range of motion. She does have several excoriations in about the right periclavicular area. These are small 3 to 4 mm erosions with a small rim of erythema. HEART: Regular. LUNGS: Clear. ABDOMEN: Benign. EXTREMITIES: Her left lower extremity is carefully positioned. She does have range of motion, and as long as in a fairly neutral range of motion say between 20 and 60 degrees, she does not have a lot of discomfort. When the range of motion is to the extreme where it tensions and really significantly moves the skin then she has increased pain. Generally, her exam is not consistent with a septic arthritis. She does have a fairly extensive area of cellulitis with a fluctuant area in the prepatellar bursa and she seems to be without neurovascular deficit distally. IMPRESSION: Septic prepatellar bursa. This presently is best managed with irrigation and debridement and IV antibiotics. The patient is tachycardic and does have a fairly pronounced cellulitis. The hospitalist will be involved for help with antibiotic selection and management of her septicemia. PLAN: We will plan to proceed this morning to the OR for irrigation and debridement. GDD:in Job ID: [id number] Doc ID: [id number] Nabil Lsat MD
== END 2019-05-13 15:05 | disposition home or self-care (01) | DRG 854 ==
LOC: ED 08:07 → SUR 09:29 → MEDSUR 09:56
PROVIDERS: ADMIT Internal Medicine; ATTEND Internal Medicine